=== PATIENT | male | born 1965 | race African-American/Black ===

== ENCOUNTER 2018-02-14 16:01 | Emergency (ER) | payer MEDICAID ==
[~2018-02-14] VITALS: Ht 177.8 cm; Wt 95.0 kg
[2018-02-14 16:31] VITALS: BP 189/98
== END 2018-02-14 17:42 | disposition home or self-care (01) ==
LOC: ER 16:38
DX: S05.01XA Injury of conjunctiva and corneal abrasion without foreign body, right eye, initial encounter (principal); F17.200 Nicotine dependence, unspecified, uncomplicated; I10 Essential (primary) hypertension; X58.XXXA Exposure to other specified factors, initial encounter; Y93.89 Activity, other specified
CPT/HCPCS: 99283